=== PATIENT | male | born 1955 | race Caucasian/White ===

== ENCOUNTER 2017-10-24 10:07 | Inpatient (IN) | payer OTHER ==
[2017-10-24 10:37] VITALS: BMI 31.7
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
[2017-10-24] MEDS ORDERED: chlordiazePOXIDE HCL 25 MG CAPSULE PO PRN (12:54)
[2017-10-24] MEDS ORDERED: MENTHOL/PHENOL 1 EACH UD MM PRN (12:54)
[2017-10-24] MEDS ORDERED: MAG HYDROX/AL HYDROX/SIMETH 30 ML UNIT-DOSE CUP PO PRN (12:54)
[2017-10-24] MEDS ORDERED: LOPERAMIDE HCL 2 MG CAPSULE PO PRN (12:54)
[2017-10-24] MEDS ORDERED: chlordiazePOXIDE HCL 25 MG CAPSULE PO ONE (12:54)
[2017-10-24] MEDS ORDERED: ACETAMINOPHEN 325 MG TABLET (FP) PO PRN (12:54)
[2017-10-24] MEDS ORDERED: P-EPHED 60MG/TRIPROLIDI 2.5MG TABLET PO PRN (12:54)
[2017-10-24] MEDS ORDERED: MAGNESIUM HYDROX 2400MG/30ML ORAL SUSPENSION 30 ML CUP PO PRN (12:54)
[2017-10-24] MEDS ORDERED: MAGNESIUM CITRATE 300 ML BOTTLE PO PRN (12:54)
[2017-10-24] MEDS ORDERED: hydrOXYzine PAMOATE 50 MG CAPSULE (FP) PO PRN (12:54)
[2017-10-24] MEDS ORDERED: guaiFENesin/D-METHORPHAN HB 10 ML UNIT-DOSE CUPS PO PRN (12:54)
[2017-10-24] MEDS ORDERED: IBUPROFEN 400 MG TABLET (FP) PO PRN (12:54)
--- NOTE | 2017-10-24 14:54 | CONSULT ---
[facility] Psychiatric Consult - Data Date of interview: 10/24/17 Admission source: Self referred Identifying data: Patient is a 62 y/o male single unemployed, domiciled on SSI Substance Abuse History: Admitted for Alcohol detoxification. he has been in Detoc @ [facility]. Refer to addiction counselor note for more detailed history Medical History: Patient has annemarie active medical problem Psychiatric History: Psychiatric history is unremarkable Physical/Sexual Abuse/Trauma History: Denied Additional Comment: None Mental Status Exam - Mental Status Exam Alert and Oriented to: Person Cognitive Function: Grossly Intact Patient Appearance: Well Groomed Mood: Euthymic Affect: Appropriate Patient Behavior: Cooperative Speech Pattern: Clear Voice Loudness: Normal Thought Process: Intact Thought Disorder: Not Present Hallucinations: None Suicidal Ideation: None Homicidal Ideation: None Insight/Judgement: Poor Sleep: Fair Appetite: Good Muscle strength/Tone: Normal Gait/Station: Normal Psychiatric Findings - Problem List ([place] 1, 2,3) (1) Alcohol dependence with uncomplicated withdrawal Current Visit: Yes Status: Acute - Initial Treatment Plan Initial Treatment Plan: Continue in patient Detox ytreatment. Detox protocol
--- NOTE | 2017-10-24 15:50 | CONSULT ---
[facility] Psychiatric Consult - Data Date of interview: 10/24/17 Admission source: Self-referred Identifying data: 62 y/o male single, unemployed domiciled on SSI Substance Abuse History: Admitted for alcohol Detox. Recently discharged from in patient Detox @ [facility]. Refer to addiction counselor note for more detailed [facility] Medical History: Patient has no active medical problem Psychiatric History: Unremarkable psychiatric history Physical/Sexual Abuse/Trauma History: Denied Additional Comment: None Mental Status Exam - Mental Status Exam Alert and Oriented to: Time, Place, Person Cognitive Function: Grossly Intact Patient Appearance: Well Groomed Affect: Euthymic Patient Behavior: Appropriate Speech Pattern: Clear Voice Loudness: Normal Thought Process: Intact Thought Disorder: Not Present Hallucinations: None Suicidal Ideation: None Homicidal Ideation: None Insight/Judgement: Poor Sleep: Fair Appetite: Good Muscle strength/Tone: Normal (None) Psychiatric Findings - Problem List ([place] 1, 2,3) (1) Alcohol dependence with uncomplicated withdrawal Current Visit: Yes Status: Acute - Initial Treatment Plan Initial Treatment Plan: Continue in patient Detox treatment
[2017-10-24 16:01] LABS: URINE APPEARANCE CLEAR; URINE BILIRUBIN NEGATIVE (<2.0 mg/dL); URINE COLOR YELLOW; URINE GLUCOSE (UA) NEGATIVE (NEGATIVE); URINE KETONE TRACE (NEGATIVE); URINE LEUK ESTERASE NEGATIVE (NEGATIVE); URINE NITRITE NEGATIVE (NEGATIVE); URINE PROTEIN NEGATIVE (NEGATIVE); URINE UROBILINOGEN NEGATIVE mg/dL (0.2-1.0)
[2017-10-24] MEDS: chlordiazePOXIDE HCL 25 MG CAPSULE PO SCH ×2 (17:27→22:12)
[2017-10-24] MEDS ORDERED: MELATONIN 5 MG TABLETS PO PRN (22:00)
[2017-10-24] MEDS: THIAMINE HCL 100 MG TABLET (FP) PO SCH (22:12)
[2017-10-25] MEDS: chlordiazePOXIDE HCL 25 MG CAPSULE PO SCH ×4 (05:24→22:09)
[2017-10-25] MEDS: PRENATAL VITAMINS W/ FOLIC ACID TABLET (FP) PO SCH (10:14)
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
[2017-10-25 10:50] LABS: ALBUMIN 3.3 g/dl (3.4-5.0); ANION GAP 5 (8-16); BLOOD UREA NITROGEN 10 mg/dL (7-18); CALCIUM 8.5 mg/dL (8.5-10.1); CHLORIDE 105 mmol/L (98-107); CO2 32 mmol/L (21-32); GLUCOSE,RANDOM 86 mg/dL (74-106); POTASSIUM 3.3 mmol/L (3.5-5.1); SGOT/AST 53 U/L (15-37); SODIUM 142 mmol/L (136-145)
[2017-10-25 10:55] LABS: ALK PHOS 90 U/L (45-117); CREATININE 0.6 mg/dL (0.7-1.3); SGPT/ALT 64 U/L (12-78); TOT PROT 6.4 g/dl (6.4-8.2)
[2017-10-25 10:58] LABS: HEMATOCRIT 35.2 % (35.4-49); HEMOGLOBIN 12.2 GM/dL (11.7-16.9); MCH 31.8 pg (25.7-33.7); MCHC 34.6 g/dl (32.0-35.9); MEAN CELL VOLUME 91.8 fl (80-96); MEAN PLT VOLUME 7.9 fl (7.5-11.1); PLATELET COUNT 156 K/MM3 (134-434); RBC 3.83 M/mm3 (4.00-5.60); RDW 12.8 % (11.9-15.9); WHITE BLOOD COUNT 6.9 K/mm3 (4.0-10.0)
[2017-10-25] MEDS: THIAMINE HCL 100 MG TABLET (FP) PO SCH (22:08)
--- NOTE | 2017-10-25 23:57 | EKG ---
Test Reason : Blood Pressure : / mmHG Vent. Rate : 096 BPM Atrial Rate : 096 BPM P-R Int : 136 ms QRS Dur : 080 ms QT Int : 338 ms P-R-T Axes : 051 007 011 degrees QTc Int : 427 ms NORMAL SINUS RHYTHM NONSPECIFIC T WAVE ABNORMALITY ABNORMAL ECG NO PREVIOUS ECGS AVAILABLE Confirmed by ELI RDZ MD ([id number]) on 10/25/2017 11:57:03 PM Referred By: Confirmed By:ELI RDZ MD
[2017-10-26] MEDS: chlordiazePOXIDE HCL 25 MG CAPSULE PO SCH ×2 (05:51→10:21)
[2017-10-26] MEDS: PRENATAL VITAMINS W/ FOLIC ACID TABLET (FP) PO SCH (10:21)
[2017-10-26] MEDS ORDERED: POTASSIUM CHLORIDE ORAL LIQUID 20 MEQ/15 ML PO ONE (10:29)
--- NOTE | 2017-10-26 10:30 | PN ---
S CIWA - CIWA Score Nausea/Vomitin-No Nausea/No Vomiting Muscle Tremors: 4-Moderate,w/Arms Extend Anxiety: 4-Mod. Anxious/Guarded Agitation: 3 Paroxysmal Sweats: 1-Minimal Palms Moist Orientation: 0-Oriented Tacttile Disturbances: 0-None Auditory Disturbances: 0-None Visual Disturbances: 0-None Headache: 0-None Present CIWA-Ar Total Score: 12 BHS Progress Note (SOAP) Subjective: TREMORS,ANXIETY. ALERT O X 3. CHRONIC LEFT SHOULDER PAIN. Objective: 10/26/17 10:27 Last Vital Signs Temp Pulse Resp BP Pulse Ox 98.0 F 120 H 20 117/75 10/26/17 09:20 10/26/17 09:20 10/26/17 09:20 10/26/17 09:20 Laboratory Tests 10/24/17 10/25/17 10/25/17 14:11 07:00 07:00 WBC 6.9 RBC 3.83 L Hgb 12.2 Hct 35.2 L MCV 91.8 MCH 31.8 MCHC 34.6 RDW 12.8 Plt Count 156 MPV 7.9 Platelet Comment No clumping noted Sodium 142 Potassium 3.3 L Chloride 105 Carbon Dioxide 32 Anion Gap 5 L BUN 10 Creatinine 0.6 L Creat Clearance w eGFR > 60 Random Glucose 86 Calcium 8.5 Total Bilirubin 1.0 AST 53 H ALT 64 Alkaline Phosphatase 90 Total Protein 6.4 Albumin 3.3 L Urine Color Yellow Urine Appearance Clear Urine pH 6.0 Ur Specific [place] 1.015 Urine Protein Negative Urine Glucose (UA) Negative Urine Ketones Trace H Urine Blood Negative Urine Nitrite Negative Urine Bilirubin Negative Urine Urobilinogen Negative Ur Leukocyte Esterase Negative RPR Titer 10/25/17 07:00 WBC RBC Hgb Hct MCV MCH MCHC RDW Plt Count MPV Platelet Comment Sodium Potassium Chloride Carbon Dioxide Anion Gap BUN Creatinine Creat Clearance w eGFR Random Glucose Calcium Total Bilirubin AST ALT Alkaline Phosphatase Total Protein Albumin Urine Color Urine Appearance Urine pH Ur Specific [place] Urine Protein Urine Glucose (UA) Urine Ketones Urine Blood Urine Nitrite Urine Bilirubin Urine Urobilinogen Ur Leukocyte Esterase RPR Titer Nonreactive LABS NOTED Assessment: 10/26/17 10:28 WITHDRAWAL SX HYPOKALEMIA Plan: CONTINUE DETOX KCL LIQ 20 MEQ PO NOW AND THEN BID
[2017-10-26] MEDS: ASPIRIN 81 MG CHEWABLE TABLETS PO SCH (11:00)
[2017-10-26] MEDS: chlordiazePOXIDE 5 MG CAPSULE PO SCH ×2 (17:17→22:26)
[2017-10-26] MEDS: POTASSIUM CHLORIDE ORAL LIQUID 20 MEQ/15 ML PO SCH (22:26)
[2017-10-26] MEDS: THIAMINE HCL 100 MG TABLET (FP) PO SCH (22:26)
[2017-10-27] MEDS: chlordiazePOXIDE 5 MG CAPSULE PO SCH ×2 (06:54→10:12)
[2017-10-27] MEDS: PRENATAL VITAMINS W/ FOLIC ACID TABLET (FP) PO SCH (10:12)
[2017-10-27] MEDS: ASPIRIN 81 MG CHEWABLE TABLETS PO SCH (10:12)
[2017-10-27] MEDS: POTASSIUM CHLORIDE ORAL LIQUID 20 MEQ/15 ML PO SCH ×2 (10:12→22:14)
--- NOTE | 2017-10-27 11:38 | PN ---
BHS Progress Note (SOAP) Subjective: SLIGHT ANXIETY,SWEATS, DETOX PROCEEDING WELL. LESS FATIGUE TODAY. Objective: 10/27/17 11:37 Vital Signs 10/27/17 10/27/17 06:44 09:12 Temperature 97.3 F L 99.1 F Pulse Rate 85 94 H Respiratory 18 20 Rate Blood Pressure 130/88 120/76 Laboratory Tests 10/24/17 10/25/17 10/25/17 14:11 07:00 07:00 WBC 6.9 RBC 3.83 L Hgb 12.2 Hct 35.2 L MCV 91.8 MCH 31.8 MCHC 34.6 RDW 12.8 Plt Count 156 MPV 7.9 Platelet Comment No clumping noted Sodium 142 Potassium 3.3 L Chloride 105 Carbon Dioxide 32 Anion Gap 5 L BUN 10 Creatinine 0.6 L Creat Clearance w eGFR > 60 Random Glucose 86 Calcium 8.5 Total Bilirubin 1.0 AST 53 H ALT 64 Alkaline Phosphatase 90 Total Protein 6.4 Albumin 3.3 L Urine Color Yellow Urine Appearance Clear Urine pH 6.0 Ur Specific [place] 1.015 Urine Protein Negative Urine Glucose (UA) Negative Urine Ketones Trace H Urine Blood Negative Urine Nitrite Negative Urine Bilirubin Negative Urine Urobilinogen Negative Ur Leukocyte Esterase Negative RPR Titer 10/25/17 07:00 WBC RBC Hgb Hct MCV MCH MCHC RDW Plt Count MPV Platelet Comment Sodium Potassium Chloride Carbon Dioxide Anion Gap BUN Creatinine Creat Clearance w eGFR Random Glucose Calcium Total Bilirubin AST ALT Alkaline Phosphatase Total Protein Albumin Urine Color Urine Appearance Urine pH Ur Specific [place] Urine Protein Urine Glucose (UA) Urine Ketones Urine Blood Urine Nitrite Urine Bilirubin Urine Urobilinogen Ur Leukocyte Esterase RPR Titer Nonreactive Assessment: 10/27/17 11:37 WITHDRAWAL SX Plan: CONTINUE DETOX CONTINUE WITH K+ SUPPLEMENTATION.
[2017-10-27] MEDS: chlordiazePOXIDE HCL 10 MG CAPSULE PO SCH ×2 (17:50→22:14)
[2017-10-27] MEDS: THIAMINE HCL 100 MG TABLET (FP) PO SCH (22:14)
[2017-10-28] MEDS: chlordiazePOXIDE HCL 10 MG CAPSULE PO SCH (05:15)
[2017-10-28 06:22] VITALS: BP 108/77; PULSE 83; TEMP 98
--- NOTE | 2017-10-28 20:18 | PN ---
BHS Progress Note (SOAP) Subjective: Patient denies current Detox symptoms and reports that he feels well overall. Objective: PATIENT A & O X 3, OBSERVED AMBULATING ON UNIT. NO ACUTE DISTRESS. 10/28/17 20:17 Vital Signs Temperature 98.0 F 10/28/17 06:22 Pulse Rate 83 10/28/17 06:22 Respiratory Rate 18 10/28/17 06:30 Blood Pressure 108/77 10/28/17 06:22 O2 Sat by Pulse Oximetry (%) Laboratory Tests 10/24/17 10/25/17 10/25/17 14:11 07:00 07:00 WBC 6.9 RBC 3.83 L Hgb 12.2 Hct 35.2 L MCV 91.8 MCH 31.8 MCHC 34.6 RDW 12.8 Plt Count 156 MPV 7.9 Platelet Comment No clumping noted Sodium 142 Potassium 3.3 L Chloride 105 Carbon Dioxide 32 Anion Gap 5 L BUN 10 Creatinine 0.6 L Creat Clearance w eGFR > 60 Random Glucose 86 Calcium 8.5 Total Bilirubin 1.0 AST 53 H ALT 64 Alkaline Phosphatase 90 Total Protein 6.4 Albumin 3.3 L Urine Color Yellow Urine Appearance Clear Urine pH 6.0 Ur Specific [place] 1.015 Urine Protein Negative Urine Glucose (UA) Negative Urine Ketones Trace H Urine Blood Negative Urine Nitrite Negative Urine Bilirubin Negative Urine Urobilinogen Negative Ur Leukocyte Esterase Negative RPR Titer 10/25/17 07:00 WBC RBC Hgb Hct MCV MCH MCHC RDW Plt Count MPV Platelet Comment Sodium Potassium Chloride Carbon Dioxide Anion Gap BUN Creatinine Creat Clearance w eGFR Random Glucose Calcium Total Bilirubin AST ALT Alkaline Phosphatase Total Protein Albumin Urine Color Urine Appearance Urine pH Ur Specific [place] Urine Protein Urine Glucose (UA) Urine Ketones Urine Blood Urine Nitrite Urine Bilirubin Urine Urobilinogen Ur Leukocyte Esterase RPR Titer Nonreactive LABS NOTED. Assessment: 10/28/17 20:18 COMPLETION OF DETOX REGIMEN. 10/28/17 20:18 Plan: PATIENT SCHEDULED FOR DISCHARGE FROM DETOX UNIT TODAY.
--- NOTE | 2017-10-28 20:22 | DS ---
[facility] Detox Discharge Summary Admission Date: 10/24/17 Discharge Date: 10/28/17 - History Present History: Alcohol Dependence Additional Comments: PATIENT DECLINES AFTERCARE REFERRAL. PATIENT ADVISED TO CONSIDER LOCAL 12-STEP / AA OUTPATIENT SUPPORT GROUPS FOR AFTERCARE. PATIENT WAS DISCHARGED FROM DETOX UNIT IN STABLE MEDICAL CONDITION. Pertinent Past History: Depression, History of Anemia, History of Seizures (due to Withdrawal), Dehydration, Hypokalemia. - Physical Exam Results Vital Signs: Vital Signs Temperature 98.0 F 10/28/17 06:22 Pulse Rate 83 10/28/17 06:22 Respiratory Rate 18 10/28/17 06:30 Blood Pressure 108/77 10/28/17 06:22 O2 Sat by Pulse Oximetry (%) Pertinent Admission Physical Exam Findings: WITHDRAWAL SYMPTOMS. Laboratory Tests 10/24/17 10/25/17 10/25/17 14:11 07:00 07:00 WBC 6.9 RBC 3.83 L Hgb 12.2 Hct 35.2 L MCV 91.8 MCH 31.8 MCHC 34.6 RDW 12.8 Plt Count 156 MPV 7.9 Platelet Comment No clumping noted Sodium 142 Potassium 3.3 L Chloride 105 Carbon Dioxide 32 Anion Gap 5 L BUN 10 Creatinine 0.6 L Creat Clearance w eGFR > 60 Random Glucose 86 Calcium 8.5 Total Bilirubin 1.0 AST 53 H ALT 64 Alkaline Phosphatase 90 Total Protein 6.4 Albumin 3.3 L Urine Color Yellow Urine Appearance Clear Urine pH 6.0 Ur Specific [place] 1.015 Urine Protein Negative Urine Glucose (UA) Negative Urine Ketones Trace H Urine Blood Negative Urine Nitrite Negative Urine Bilirubin Negative Urine Urobilinogen Negative Ur Leukocyte Esterase Negative RPR Titer 10/25/17 07:00 WBC RBC Hgb Hct MCV MCH MCHC RDW Plt Count MPV Platelet Comment Sodium Potassium Chloride Carbon Dioxide Anion Gap BUN Creatinine Creat Clearance w eGFR Random Glucose Calcium Total Bilirubin AST ALT Alkaline Phosphatase Total Protein Albumin Urine Color Urine Appearance Urine pH Ur Specific [place] Urine Protein Urine Glucose (UA) Urine Ketones Urine Blood Urine Nitrite Urine Bilirubin Urine Urobilinogen Ur Leukocyte Esterase RPR Titer Nonreactive LABS NOTED. - Treatment Hospital Course: Detox Protocol Followed, Detoxed Safely, Responded well, Discharged Condition Good Patient has Accepted a Rehab Referral to: PATIENT ADVISDED TO CONSIDER LOCAL 12- STEP/AA OUTPATIENT SUPPORT GROUPS. - Medication Discharge Medications: Ambulatory Orders Aspirin [ASA -] 81 mg PO DAILY 10/24/17 - Diagnosis (1) Alcohol dependence with uncomplicated withdrawal Status: Acute (2) Dehydration Status: Acute (3) Depressed affect Status: Acute (4) Hypokalemia Status: Acute (5) Pain in left shoulder Status: Chronic Qualifiers: Chronicity: chronic Qualified Code(s): M25.512 - Pain in left shoulder; G89.29 - Other chronic pain - AMA Did Patient Leave Against Medical Advice: No
== END 2017-10-28 08:45 | disposition home or self-care (01) | DRG 775 ==
LOC: YASAS 10:07 → Y3N 11:07
PROVIDERS: ADMIT Internal Medicine; ATTEND Internal Medicine
PROC: HZ2ZZZZ Detoxification Services for Substance Abuse Treatment (ICD-10-PCS; principal; 2017-10-24)
DX: F10.230 Alcohol dependence with withdrawal, uncomplicated (principal); E86.0 Dehydration; E87.6 Hypokalemia; R45.89 Other symptoms and signs involving emotional state; M25.512 Pain in left shoulder; G89.29 Other chronic pain; Z86.69 Personal history of other diseases of the nervous system and sense organs; Z86.2 Personal history of diseases of the blood and blood-forming organs and certain disorders involving the immune mechanism; Z59.0 Homelessness
CPT/HCPCS: 36415; 80053; 81003; 85027; 86593; 93005; 93010

== ENCOUNTER 2018-01-27 10:33 | Inpatient (IN) | payer OTHER ==
[2018-01-27 11:02] VITALS: BMI 31.2
--- NOTE | 2018-01-27 12:35 | HP ---
CIWA Score - CIWA Score Nausea/Vomitin-No Nausea/No Vomiting Muscle Tremors: 4-Moderate,w/Arms Extend Anxiety: 3 Agitation: 1-Slight > Activity Paroxysmal Sweats: 2 Orientation: 1-Uncertain about Date (no distress) Tacttile Disturbances: 2-Mild Itch/Numbness/Burn Auditory Disturbances: 0-None Visual Disturbances: 2-Mild Sensitivity Headache: 3-Moderate CIWA-Ar Total Score: 18 Admission ROS BHS - HPI Chief Complaint: alcohol withdrawal symptoms Allergies/Adverse Reactions: Allergies Allergy/AdvReac Type Severity Reaction Status Date / Time No Known Allergies Allergy Verified 01/27/18 11:32 History of Present Illness: 62 yo kyrgyz speaking only male, with hx of chronic alcohol dependence is here seeking detox. Patient was seen yesterday and discharged today at [facility] for Cellulitis bilateral lower extremities and (L) conjunctivitis. PMHX: GERD, Anemia, HDL, HTN. Denies any psychiatric problems. Denies suicidal / homicidal ideation or suicide attempts. Denies hx of seizures or blackouts. Longest period of sobriety five months. Last detox [facility] 12/11/17 - . Exam Limitations: No Limitations - Ebola screening Have you been sick,other than usual withdrawal symptoms: No - Review of Systems Constitutional: Chills, Loss of Appetite, Unintentional Wgt. Loss (10 lbs) EENT: reports: See HPI Respiratory: reports: No Symptoms reported Cardiac: reports: No Symptoms Reported GI: reports: Indigestion : reports: No Symptoms Reported Musculoskeletal: reports: No Symptoms Reported Integumentary: reports: See HPI, Erythema (bilateral lower extremities) Neuro: reports: Headache Endocrine: reports: Increased Thirst Hematology: reports: Anemia Psychiatric: reports: Orientated x3, Depressed Other Systems: Reviewed and Negative Patient History - Patient Medical History Hx Anemia: Yes Hx Asthma: No Hx Chronic Obstructive Pulmonary Disease (COPD): No Hx Cancer: No Hx Cardiac Disorders: No Hx Congestive Heart Failure: No Hx Hypertension: No Hx Hypercholesterolemia: No Hx Pacemaker: No HX Cerebrovascular Accident: No Hx Seizures: No Hx Dementia: No Hx Diabetes: No Hx Gastrointestinal Disorders: Yes (acid reflux) Hx Liver Disease: No Hx Genitourinary Disorders: No Hx Sexually Transmitted Disorders: No Hx Renal Disease (ESRD): No Hx Thyroid Disease: No Hx Human Immunodeficiency Virus (HIV): No Hx Hepatitis C: No Hx Depression: No Hx Suicide Attempt: No Hx Bipolar Disorder: No Hx Schizophrenia: No - Patient Surgical History Past Surgical History: No Hx Neurologic Surgery: No Hx Cataract Extraction: No Hx Cardiac Surgery: No Hx Lung Surgery: No Hx Breast Surgery: No Hx Breast Biopsy: No Hx Abdominal Surgery: No Hx Appendectomy: No Hx Cholecystectomy: No Hx Genitourinary Surgery: No Hx Section: No Hx Orthopedic Surgery: No Anesthesia Reaction: No - PPD History Previous Implant?: Yes Documented Results: Negative w/proof Implanted On Prior [facility] Admission?: Yes Date: 10/26/17 Results: 0 mm PPD to be Administered?: No - Smoking Cessation Smoking history: Never smoked Have you smoked in the past 12 months: No Hx Chewing Tobacco Use: No Initiated information on smoking cessation: No - Substances Abused Alcohol-vodka/rum Route: Oral Frequency: Daily Amount used: 3 pts. Age of first use: 22 Date of Last Use: 01/26/18 Family Disease History - Family Disease History Family Disease History: Other: Father (doesn't know), Mother (doesn't know) Admission Physical Exam BHS - Vital Signs Vital Signs: Vital Signs - 24 hr 01/27/18 10:58 Temperature 97 F L Pulse Rate 82 Respiratory 18 Rate Blood Pressure 112/68 - Physical General Appearance: Yes: Disheveled, Moderate Distress, Tremorous, Sweating, Anxious, Other (malodorous and unkempt) HEENTM: Yes: Hearing grossly Normal, Normal ENT Inspection, Normocephalic, Normal Voice, PATRICK, Pharynx Normal, Tm's normal, Other (left conjuctival erythema, poor dentition) Respiratory: Yes: Chest Non-Tender, Lungs Clear, Normal Breath Sounds, No Respiratory Distress, No Accessory Muscle Use Neck: Yes: Within Normal Limits Breast: Yes: Breast Exam Deferred Cardiology: Yes: Regular Rhythm, Regular Rate Abdominal: Yes: Normal Bowel Sounds, Non Tender, Flat, Soft Musculoskeletal: Yes: full range of Motion, Gait Steady, Pelvis Stable 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, Fully Oriented, Alert, Motor Strength 5/5, Depressed Affect Integumentary: Yes: Within Normal Limits, Normal Color, Warm, Erythema (both lower extremities), Diaphoresis Lymphatic: Yes: Within Normal Limits - Diagnostic (1) HTN (hypertension) Current Visit: Yes Status: Chronic Qualifiers: Hypertension type: essential hypertension Qualified Code(s): I10 - Essential (primary) hypertension Comment: on ASA 81 mG QD (2) GERD (gastroesophageal reflux disease) Current Visit: Yes Status: Chronic Qualifiers: Esophagitis presence: without esophagitis Qualified Code(s): K21.9 - Gastro -esophageal reflux disease without esophagitis (3) Hyperlipidemia Current Visit: Yes Status: Chronic Qualifiers: Hyperlipidemia type: unspecified Qualified Code(s): E78.5 - Hyperlipidemia , unspecified (4) Bilateral cellulitis of lower leg Current Visit: Yes Status: Acute (5) Acute allergic conjunctivitis of left eye Current Visit: Yes Status: Acute (6) Alcohol dependence with uncomplicated withdrawal Current Visit: Yes Status: Acute (7) Weight loss Current Visit: Yes Status: Acute Cleared for Admission [facility] - Detox or Rehab [facility] Level of Care: Medically Managed Detox Regimen/Protocol: Librium S Breath Alcohol Content Breath Alcohol Content: 0 Urine Drug Screen - Results Drug Screen Negative: No Urine Drug Screen Results: BZO-Benzodiazepines
[2018-01-27] MEDS ORDERED: MAG HYDROX/AL HYDROX/SIMETH 30 ML UNIT-DOSE CUP PO PRN (12:41)
[2018-01-27] MEDS ORDERED: MAGNESIUM CITRATE 300 ML BOTTLE PO PRN (12:41)
[2018-01-27] MEDS ORDERED: ACETAMINOPHEN 325 MG TABLET (FP) PO PRN (12:41)
[2018-01-27] MEDS ORDERED: LOPERAMIDE HCL 2 MG CAPSULE PO PRN (12:41)
[2018-01-27] MEDS ORDERED: MENTHOL/PHENOL 1 EACH UD MM PRN (12:41)
[2018-01-27] MEDS ORDERED: hydrOXYzine PAMOATE 50 MG CAPSULE (FP) PO PRN (12:41)
[2018-01-27] MEDS ORDERED: chlordiazePOXIDE HCL 25 MG CAPSULE PO PRN (12:41)
[2018-01-27] MEDS ORDERED: MAGNESIUM HYDROX 2400MG/30ML ORAL SUSPENSION 30 ML CUP PO PRN (12:41)
[2018-01-27] MEDS ORDERED: IBUPROFEN 400 MG TABLET (FP) PO PRN (12:41)
[2018-01-27] MEDS ORDERED: P-EPHED 60MG/TRIPROLIDI 2.5MG TABLET PO PRN (12:41)
[2018-01-27] MEDS ORDERED: guaiFENesin/D-METHORPHAN HB 10 ML UNIT-DOSE CUPS PO PRN (12:41)
[2018-01-27] MEDS ORDERED: [UNRECOGNIZED DRUG - REMARK] OS SCH (12:45)
[2018-01-27] MEDS ORDERED: chlordiazePOXIDE HCL 25 MG CAPSULE PO ONE (12:55)
[2018-01-27] MEDS: CLINDAMYCIN HCL 150 MG CAPSULE (FP) PO SCH ×3 (13:30→22:02)
[2018-01-27] MEDS: TETRAHYDROZOLINE HCL EYE DROPS OS PRN ×2 (15:12→22:05)
--- NOTE | 2018-01-27 16:00 | EKG ---
Test Reason : Blood Pressure : / mmHG Vent. Rate : 060 BPM Atrial Rate : 060 BPM P-R Int : 144 ms QRS Dur : 078 ms QT Int : 414 ms P-R-T Axes : 055 007 020 degrees QTc Int : 414 ms NORMAL SINUS RHYTHM NORMAL ECG WHEN COMPARED WITH ECG OF 11-DEC-2017 12:06, NO SIGNIFICANT CHANGE WAS FOUND Confirmed by Ann Crabtree ([id number]) on 01/27/2018 4:00:16 PM Referred By: Confirmed By:Ann Crabtree
[2018-01-27] MEDS: chlordiazePOXIDE HCL 25 MG CAPSULE PO SCH ×2 (17:25→22:03)
[2018-01-27 17:57] LABS: URINE APPEARANCE CLEAR; URINE BILIRUBIN NEGATIVE (<2.0 mg/dL); URINE COLOR YELLOW; URINE GLUCOSE (UA) NEGATIVE (NEGATIVE); URINE KETONE NEGATIVE (NEGATIVE); URINE LEUK ESTERASE NEGATIVE (NEGATIVE); URINE NITRITE NEGATIVE (NEGATIVE); URINE PROTEIN NEGATIVE (NEGATIVE); URINE UROBILINOGEN NEGATIVE mg/dL (0.2-1.0)
[2018-01-27] MEDS ORDERED: MELATONIN 5 MG TABLETS PO PRN (22:00)
[2018-01-27] MEDS: THIAMINE HCL 100 MG TABLET (FP) PO SCH (22:02)
[2018-01-27] MEDS: RANITIDINE HCL 150 MG TABLET (FP) PO SCH (22:03)
[2018-01-27] MEDS: ATORVASTATIN CA 40 MG TABLET (FP) PO SCH (22:03)
[2018-01-28] MEDS: chlordiazePOXIDE HCL 25 MG CAPSULE PO SCH ×4 (06:00→22:27)
[2018-01-28] MEDS: PRENATAL VITAMINS W/ FOLIC ACID TABLET (FP) PO SCH (10:25)
[2018-01-28] MEDS: RANITIDINE HCL 150 MG TABLET (FP) PO SCH ×2 (10:25→22:27)
[2018-01-28] MEDS: ASPIRIN 81 MG CHEWABLE TABLETS PO SCH (10:25)
[2018-01-28] MEDS: CLINDAMYCIN HCL 150 MG CAPSULE (FP) PO SCH ×4 (10:25→22:28)
--- NOTE | 2018-01-28 16:34 | PN ---
S CIWA - CIWA Score Nausea/Vomitin-No Nausea/No Vomiting Muscle Tremors: 3 Anxiety: 4-Mod. Anxious/Guarded Agitation: 2 Paroxysmal Sweats: No Perspiration Orientation: 4Disoriented Place/Person Tacttile Disturbances: 2-Mild Itch/Numbness/Burn Auditory Disturbances: 0-None Visual Disturbances: 2-Mild Sensitivity Headache: 0-None Present CIWA-Ar Total Score: 17 [facility] Progress Note (SOAP) Subjective: Tremors, Anxious, Itching. Objective: PATIENT A & O X 2 (UNCERTAIN ABOUT CURRENT DAY / DATE). PATIENT OBSERVED AMBULATING ON UNIT. NO ACUTE DISTRESS. 01/28/18 16:35 Laboratory Tests 01/27/18 15:41 Urine Color Yellow Urine Appearance Clear Urine pH 5.0 Ur Specific [place] 1.017 Urine Protein Negative Urine Glucose (UA) Negative Urine Ketones Negative Urine Blood Negative Urine Nitrite Negative Urine Bilirubin Negative Urine Urobilinogen Negative Ur Leukocyte Esterase Negative UA RESULTS NOTED. CBC, CMP, RPR RESULTS PENDING. 01/28/18 16:36 Assessment: 01/28/18 16:37 WITHDRAWAL SYMPTOMS. Plan: CONTINUE DETOX. INCREASE DAILY PO FLUID INTAKE.
[2018-01-28] MEDS: ATORVASTATIN CA 40 MG TABLET (FP) PO SCH (22:27)
[2018-01-28] MEDS: THIAMINE HCL 100 MG TABLET (FP) PO SCH (22:27)
[2018-01-29] MEDS: chlordiazePOXIDE HCL 25 MG CAPSULE PO SCH ×2 (05:26→10:33)
[2018-01-29 10:10] LABS: HEMATOCRIT 38.5 % (35.4-49); HEMOGLOBIN 12.9 GM/dL (11.7-16.9); MCH 32.7 pg (25.7-33.7); MCHC 33.6 g/dl (32.0-35.9); MEAN CELL VOLUME 97.4 fl (80-96); MEAN PLT VOLUME 7.6 fl (7.5-11.1); PLATELET COUNT 199 K/MM3 (134-434); RBC 3.96 M/mm3 (4.00-5.60); RDW 13.8 % (11.9-15.9); WHITE BLOOD COUNT 4.8 K/mm3 (4.0-10.0)
[2018-01-29 10:23] LABS: CHLORIDE 105 mmol/L (98-107); POTASSIUM 3.9 mmol/L (3.5-5.1); SODIUM 143 mmol/L (136-145)
[2018-01-29] MEDS: ASPIRIN 81 MG CHEWABLE TABLETS PO SCH (10:33)
[2018-01-29] MEDS: PRENATAL VITAMINS W/ FOLIC ACID TABLET (FP) PO SCH (10:34)
[2018-01-29] MEDS: CLINDAMYCIN HCL 150 MG CAPSULE (FP) PO SCH ×4 (10:34→22:34)
[2018-01-29] MEDS: RANITIDINE HCL 150 MG TABLET (FP) PO SCH ×2 (10:34→22:35)
[2018-01-29] MEDS: TETRAHYDROZOLINE HCL EYE DROPS OS PRN (10:36)
[2018-01-29 11:10] LABS: ALBUMIN 2.9 g/dl (3.4-5.0); ALK PHOS 122 U/L (45-117); ANION GAP 11 MMOL/L (8-16); BILIRUBIN,TOTAL 0.4 mg/dL (0.2-1.0); BLOOD UREA NITROGEN 12 mg/dL (7-18); CALCIUM 8.8 mg/dL (8.5-10.1); CO2 27 mmol/L (21-32); CREATININE 0.6 mg/dL (0.7-1.3); GLUCOSE,RANDOM 102 mg/dL (74-106); SGOT/AST 47 U/L (15-37); SGPT/ALT 39 U/L (12-78); TOT PROT 6.6 g/dl (6.4-8.2)
--- NOTE | 2018-01-29 15:42 | PN ---
S CIWA - CIWA Score Nausea/Vomitin-No Nausea/No Vomiting Muscle Tremors: 3 Anxiety: 3 Agitation: 0-Normal Activity Paroxysmal Sweats: 3 Orientation: 2-Disoriented Date<2 days Tacttile Disturbances: 2-Mild Itch/Numbness/Burn Auditory Disturbances: 0-None Visual Disturbances: 0-None Headache: 0-None Present CIWA-Ar Total Score: 13 [facility] Progress Note (SOAP) Subjective: Sweating, Interrupted Sleep, Tremors. Objective: PATIENT A & O X 2 (UNCERTAIN ABOUT CURRENT DAY / DATE). PATIENT OBSERVED AMBULATING ON UNIT. NO ACUTE DISTRESS. 01/29/18 15:41 Laboratory Tests 01/27/18 01/29/18 01/29/18 15:41 08:25 08:25 WBC 4.8 RBC 3.96 L Hgb 12.9 Hct 38.5 MCV 97.4 H MCH 32.7 MCHC 33.6 RDW 13.8 Plt Count 199 D MPV 7.6 D Sodium 143 Potassium 3.9 D Chloride 105 Carbon Dioxide 27 Anion Gap 11 BUN 12 Creatinine 0.6 L Creat Clearance w eGFR > 60 Random Glucose 102 D Calcium 8.8 Total Bilirubin 0.4 AST 47 H D ALT 39 D Alkaline Phosphatase 122 H Total Protein 6.6 Albumin 2.9 L Urine Color Yellow Urine Appearance Clear Urine pH 5.0 Ur Specific [place] 1.017 Urine Protein Negative Urine Glucose (UA) Negative Urine Ketones Negative Urine Blood Negative Urine Nitrite Negative Urine Bilirubin Negative Urine Urobilinogen Negative Ur Leukocyte Esterase Negative RPR Titer 01/29/18 08:25 WBC RBC Hgb Hct MCV MCH MCHC RDW Plt Count MPV Sodium Potassium Chloride Carbon Dioxide Anion Gap BUN Creatinine Creat Clearance w eGFR Random Glucose Calcium Total Bilirubin AST ALT Alkaline Phosphatase Total Protein Albumin Urine Color Urine Appearance Urine pH Ur Specific [place] Urine Protein Urine Glucose (UA) Urine Ketones Urine Blood Urine Nitrite Urine Bilirubin Urine Urobilinogen Ur Leukocyte Esterase RPR Titer Nonreactive LABS NOTED. Assessment: 01/29/18 15:41 WITHDRAWAL SYMPTOMS. Plan: CONTINUE DETOX. INCREASE DAILY PO FLUID INTAKE. ENCOURAGE AMBULATION.
[2018-01-29] MEDS: chlordiazePOXIDE 5 MG CAPSULE PO SCH ×2 (17:51→22:35)
[2018-01-29] MEDS: THIAMINE HCL 100 MG TABLET (FP) PO SCH (22:34)
[2018-01-29] MEDS: ATORVASTATIN CA 40 MG TABLET (FP) PO SCH (22:35)
[2018-01-30] MEDS: chlordiazePOXIDE 5 MG CAPSULE PO SCH ×2 (05:26→10:29)
[2018-01-30] MEDS: CLINDAMYCIN HCL 150 MG CAPSULE (FP) PO SCH ×4 (10:29→22:52)
[2018-01-30] MEDS: ASPIRIN 81 MG CHEWABLE TABLETS PO SCH (10:29)
[2018-01-30] MEDS: RANITIDINE HCL 150 MG TABLET (FP) PO SCH ×2 (10:29→22:52)
[2018-01-30] MEDS: PRENATAL VITAMINS W/ FOLIC ACID TABLET (FP) PO SCH (10:29)
--- NOTE | 2018-01-30 16:13 | PN ---
S CIWA - CIWA Score Nausea/Vomitin Muscle Tremors: 3 Anxiety: 3 Agitation: 3 Paroxysmal Sweats: 3 Orientation: 0-Oriented Tacttile Disturbances: 1-Very Mild Itch/Numbness Auditory Disturbances: 0-None Visual Disturbances: 0-None Headache: 2-Mild CIWA-Ar Total Score: 17 [facility] Progress Note (SOAP) Subjective: Sweating, tremor Objective: 01/30/18 16:11 Last Vital Signs Temp Pulse Resp BP Pulse Ox 97.4 F L 87 18 88/66 01/30/18 15:04 01/30/18 15:04 01/30/18 15:04 01/30/18 15:04 Noted with hypotension Laboratory Tests 01/27/18 01/29/18 01/29/18 15:41 08:25 08:25 WBC 4.8 RBC 3.96 L Hgb 12.9 Hct 38.5 MCV 97.4 H MCH 32.7 MCHC 33.6 RDW 13.8 Plt Count 199 D MPV 7.6 D Sodium 143 Potassium 3.9 D Chloride 105 Carbon Dioxide 27 Anion Gap 11 BUN 12 Creatinine 0.6 L Creat Clearance w eGFR > 60 Random Glucose 102 D Calcium 8.8 Total Bilirubin 0.4 AST 47 H D ALT 39 D Alkaline Phosphatase 122 H Total Protein 6.6 Albumin 2.9 L Urine Color Yellow Urine Appearance Clear Urine pH 5.0 Ur Specific [place] 1.017 Urine Protein Negative Urine Glucose (UA) Negative Urine Ketones Negative Urine Blood Negative Urine Nitrite Negative Urine Bilirubin Negative Urine Urobilinogen Negative Ur Leukocyte Esterase Negative RPR Titer 01/29/18 08:25 WBC RBC Hgb Hct MCV MCH MCHC RDW Plt Count MPV Sodium Potassium Chloride Carbon Dioxide Anion Gap BUN Creatinine Creat Clearance w eGFR Random Glucose Calcium Total Bilirubin AST ALT Alkaline Phosphatase Total Protein Albumin Urine Color Urine Appearance Urine pH Ur Specific [place] Urine Protein Urine Glucose (UA) Urine Ketones Urine Blood Urine Nitrite Urine Bilirubin Urine Urobilinogen Ur Leukocyte Esterase RPR Titer Nonreactive Labs reviewed Assessment: 01/30/18 16:12 Withdrawal symptoms Noted with hypotension Plan: Continue detox Hypotension: asymptomatic, encouraged PO water intake
[2018-01-30] MEDS: chlordiazePOXIDE HCL 10 MG CAPSULE PO SCH ×2 (17:42→22:52)
[2018-01-30] MEDS: ATORVASTATIN CA 40 MG TABLET (FP) PO SCH (22:52)
[2018-01-30] MEDS: THIAMINE HCL 100 MG TABLET (FP) PO SCH (22:53)
[2018-01-31] MEDS: chlordiazePOXIDE HCL 10 MG CAPSULE PO SCH (05:47)
[2018-01-31] MEDS: ASPIRIN 81 MG CHEWABLE TABLETS PO SCH (09:04)
[2018-01-31] MEDS: CLINDAMYCIN HCL 150 MG CAPSULE (FP) PO SCH (09:04)
[2018-01-31] MEDS: PRENATAL VITAMINS W/ FOLIC ACID TABLET (FP) PO SCH (09:04)
[2018-01-31] MEDS: RANITIDINE HCL 150 MG TABLET (FP) PO SCH (09:04)
[2018-01-31 09:28] VITALS: BP 104/73; PULSE 86; TEMP 96.6
--- NOTE | 2018-01-31 12:26 | PN ---
[facility] Progress Note (SOAP) Subjective: DETOX COMPLETED. ALERT O X 3. NAD. PT REMINDED TO FOLLOW UP WITH PRIMARY CARE AT [facility] . PT DECLINED TO GO TO REHAB EVEN THOUGH BED WAS OFFERED. Objective: 01/31/18 12:25 Vital Signs 01/31/18 01/31/18 06:13 09:28 Temperature 97.4 F L 96.6 F L Pulse Rate 66 86 Respiratory 16 18 Rate Blood Pressure 99/65 104/73 Laboratory Tests 01/27/18 01/29/18 01/29/18 15:41 08:25 08:25 WBC 4.8 RBC 3.96 L Hgb 12.9 Hct 38.5 MCV 97.4 H MCH 32.7 MCHC 33.6 RDW 13.8 Plt Count 199 D MPV 7.6 D Sodium 143 Potassium 3.9 D Chloride 105 Carbon Dioxide 27 Anion Gap 11 BUN 12 Creatinine 0.6 L Creat Clearance w eGFR > 60 Random Glucose 102 D Calcium 8.8 Total Bilirubin 0.4 AST 47 H D ALT 39 D Alkaline Phosphatase 122 H Total Protein 6.6 Albumin 2.9 L Urine Color Yellow Urine Appearance Clear Urine pH 5.0 Ur Specific [place] 1.017 Urine Protein Negative Urine Glucose (UA) Negative Urine Ketones Negative Urine Blood Negative Urine Nitrite Negative Urine Bilirubin Negative Urine Urobilinogen Negative Ur Leukocyte Esterase Negative RPR Titer 01/29/18 08:25 WBC RBC Hgb Hct MCV MCH MCHC RDW Plt Count MPV Sodium Potassium Chloride Carbon Dioxide Anion Gap BUN Creatinine Creat Clearance w eGFR Random Glucose Calcium Total Bilirubin AST ALT Alkaline Phosphatase Total Protein Albumin Urine Color Urine Appearance Urine pH Ur Specific [place] Urine Protein Urine Glucose (UA) Urine Ketones Urine Blood Urine Nitrite Urine Bilirubin Urine Urobilinogen Ur Leukocyte Esterase RPR Titer Nonreactive Assessment: 01/31/18 12:25 MEDICALLY STABLE Plan: D/C PT TODAY
--- NOTE | 2018-01-31 12:29 | DS ---
[facility] Detox Discharge Summary Admission Date: 01/27/18 Discharge Date: 01/31/18 - History Present History: Alcohol Dependence Additional Comments: DETOX COMPLETED. ALERT O X 3. NAD. RX SENT TO [facility]. Pertinent Past History: PLEASE SEE DX BELOW - Physical Exam Results Vital Signs: Vital Signs Temperature 96.6 F L 01/31/18 09:28 Pulse Rate 86 01/31/18 09:28 Respiratory Rate 18 01/31/18 09:28 Blood Pressure 104/73 01/31/18 09:28 O2 Sat by Pulse Oximetry (%) Pertinent Admission Physical Exam Findings: WITHDRAWAL SX Laboratory Tests 01/27/18 01/29/18 01/29/18 15:41 08:25 08:25 WBC 4.8 RBC 3.96 L Hgb 12.9 Hct 38.5 MCV 97.4 H MCH 32.7 MCHC 33.6 RDW 13.8 Plt Count 199 D MPV 7.6 D Sodium 143 Potassium 3.9 D Chloride 105 Carbon Dioxide 27 Anion Gap 11 BUN 12 Creatinine 0.6 L Creat Clearance w eGFR > 60 Random Glucose 102 D Calcium 8.8 Total Bilirubin 0.4 AST 47 H D ALT 39 D Alkaline Phosphatase 122 H Total Protein 6.6 Albumin 2.9 L Urine Color Yellow Urine Appearance Clear Urine pH 5.0 Ur Specific [place] 1.017 Urine Protein Negative Urine Glucose (UA) Negative Urine Ketones Negative Urine Blood Negative Urine Nitrite Negative Urine Bilirubin Negative Urine Urobilinogen Negative Ur Leukocyte Esterase Negative RPR Titer 01/29/18 08:25 WBC RBC Hgb Hct MCV MCH MCHC RDW Plt Count MPV Sodium Potassium Chloride Carbon Dioxide Anion Gap BUN Creatinine Creat Clearance w eGFR Random Glucose Calcium Total Bilirubin AST ALT Alkaline Phosphatase Total Protein Albumin Urine Color Urine Appearance Urine pH Ur Specific [place] Urine Protein Urine Glucose (UA) Urine Ketones Urine Blood Urine Nitrite Urine Bilirubin Urine Urobilinogen Ur Leukocyte Esterase RPR Titer Nonreactive - Treatment Hospital Course: Detox Protocol Followed, Detoxed Safely, Responded well, Discharged Condition Good Patient has Accepted a Rehab Referral to: PT REFUSED REHAB - Medication Discharge Medications: Ambulatory Orders Folic Acid - 1 mg PO DAILY 01/27/18 Multivitamins [Tab-A-Vit -] 1 tab PO DAILY 01/27/18 Thiamine HCl [B-1] 100 mg PO DAILY 01/27/18 Aspirin [ASA -] 81 mg PO DAILY #30 tab.chew 01/31/18 Atorvastatin Ca [Lipitor] 40 mg PO HS #30 tablet 01/31/18 Clindamycin HCl 300 mg PO QID #12 capsule 01/31/18 Ketotifen Fumarate [Allergy Eye Drops] 1 drop OS Q12H #1 bottle 01/31/18 Ranitidine HCl [Zantac] 150 mg PO BID #60 tablet 01/31/18 - Diagnosis (1) Alcohol dependence with uncomplicated withdrawal Status: Acute (2) Dehydration Status: Acute (3) Weight loss Status: Acute (4) GERD (gastroesophageal reflux disease) Status: Chronic Qualifiers: Esophagitis presence: without esophagitis Qualified Code(s): K21.9 - Gastro -esophageal reflux disease without esophagitis (5) HTN (hypertension) Status: Chronic Qualifiers: Hypertension type: essential hypertension Qualified Code(s): I10 - Essential (primary) hypertension (6) Hyperlipidemia Status: Chronic Qualifiers: Hyperlipidemia type: unspecified Qualified Code(s): E78.5 - Hyperlipidemia , unspecified - AMA Did Patient Leave Against Medical Advice: No
== END 2018-01-31 09:38 | disposition home or self-care (01) | DRG 775 ==
LOC: YASAS 10:33 → Y3N 12:49
PROVIDERS: ADMIT Surgery; ATTEND Surgery
PROC: HZ2ZZZZ Detoxification Services for Substance Abuse Treatment (ICD-10-PCS; principal; 2018-01-27)
DX: F10.230 Alcohol dependence with withdrawal, uncomplicated (principal); E86.0 Dehydration; E78.5 Hyperlipidemia, unspecified; I10 Essential (primary) hypertension; I95.9 Hypotension, unspecified; L03.116 Cellulitis of left lower limb; L03.115 Cellulitis of right lower limb; H10.12 Acute atopic conjunctivitis, left eye; R63.4 Abnormal weight loss; Z68.31 Body mass index [BMI] 31.0-31.9, adult; Z59.0 Homelessness
CPT/HCPCS: 36415; 80053; 81003; 85027; 86593; 93005; 93010